=== PATIENT | male | born 1995 | race Caucasian/White ===

== ENCOUNTER 2017-06-19 02:01 | Emergency (ER) | payer OTHER ==
[~2017-06-19] VITALS: Ht 182.9 cm; Wt 100.0 kg
[2017-06-19 02:05] VITALS: TEMP 36.8; Ht 182.9 cm; Wt 100.0 kg
[2017-06-19 02:18] VITALS: O2SAT 100
[2017-06-19 02:58] LABS: CALCIUM 8.2 mg/dl (8.5-10.1); CREATININE 0.84 mg/dl (0.60-1.40); POTASSIUM 3.5 mmol/L (3.5-5.1)
--- NOTE | 2017-06-19 03:09 | EMERGENCY ROOM VISIT NOTE ---
History Report prepared by Annabelleibnancy: Brad Cooper Under the Supervision of: Dr. Rosangela Chan D.O. First contact with patient: 02:23 Chief Complaint: ALCOHOL OVERDOSE Stated Complaint: ALCOHOL Nursing Triage Summary: PT was out with friends, made it back to residence was found in basement in bathroom, vomiting. PT AAO X 4, vomited once upon arrival. History of Present Illness HPI is limited due to an altered mental state secondary to alcohol intoxication.The patient is a 22 year old male who presents to the Emergency Room via EMS with complaints of a recent alcohol overdose. Per patient's summary report, patient was found at his residence vomiting. EMS states that the patient tried to run from EMS and police. Source of History: patient History Limited By: AMS (Secondary to alcohol intoxication) Review of Systems ROS limited due to an altered mental state secondary to alcohol intoxication. Past Medical & Surgical Past medical & surgical history limited due to an altered mental state secondary to alcohol intoxication. Family History Family history limited due to an altered mental state secondary to alcohol intoxication. Social History Smoking Status: Never Smoker Occupation Status: [employer] student Social history limited due to an altered mental state secondary to alcohol intoxication. Physical Exam Vital Signs Date Time Temp Pulse Resp B/P (MAP) Pulse Ox O2 Delivery O2 Flow Rate FiO2 06/19/17 08:54 79 16 125/75 97 06/19/17 08:00 79 16 101/51 97 Room Air 06/19/17 06:14 88 06/19/17 06:00 89 18 124/64 98 Room Air 06/19/17 05:13 85 18 102/43 98 Room Air 06/19/17 04:00 74 16 92/50 98 06/19/17 03:00 77 16 109/53 99 Room Air 06/19/17 02:18 100 Room Air 06/19/17 02:12 100 06/19/17 02:05 36.8 84 18 100 Room Air Physical Exam General: Patient is unresponsive with vomit on his face and mouth. HEENT: Head - normocephalic and atraumatic Pupils are 2mm, equal, round, and nonreactive to light. Extraocular eye muscles are intact, and sclera are anicteric. Nose - moist nasal mucosa without discharge. Mouth - moist buccal mucosa. Oropharynx is nonerythematous and there is no tonsillar exudate or edema noted. Neck: Supple; no JVD, nuchal rigidity, cervical lymphadenopathy. Heart: Regular rate and rhythm. There is a normal S1 and S2 with no murmurs, clicks, or gallops appreciated. Lungs: Clear to auscultation bilaterally with no wheezes, rales, or rhonchi. Abdomen: Soft, completely nontender, nondistended, with good bowel sounds. There are no palpable pulsatile masses or hepatosplenomegaly. There is no guarding, rigidity, or rebound noted. Extremities: No evidence of cyanosis, clubbing, or edema. There are easily palpable peripheral pulses. Abrasion on right knuckles and right knee. Skin: warm and dry with good turgor and no rashes. Medical Decision & Procedures Laboratory Results 06/19/17 02:09 Test 06/19/17 02:09 Anion Gap 7.0 mmol/L (3-11) Est Creatinine Clear Calc Drug Dose 170.3 ml/min Estimated GFR () 145.1 Estimated GFR (Non- 125.2 BUN/Creatinine Ratio 16.0 (10-20) Calcium Level 8.2 mg/dl (8.5-10.1) Ethyl Alcohol mg/dL 276.0 mg/dl (0-3) Laboratory results per my review. ED Course 0254: Past medical records reviewed. The patient was evaluated in room B12. A complete history and physical exam was performed. Laboratory studies were drawn as above. The patient was placed in the prone position to avoid aspiration. He was observed on the security monitor and pulse oximeter. 0355: Patient is sleeping with stable vital signs. 0517: Patient is sleeping with stable vital signs. 0830: Upon reevaluation, the patient is resting comfortably. I discussed findings and results with him. He verbalized agreement of the treatment plan. He was discharged home. Medical Decision The patient is a 22 year old male who presents to the ED with a recent alcohol overdose. Differential diagnosis includes alcohol overdose, drug intoxication, hypoglycemia, and head injury. Lab results show alcohol = 276, glucose = 104, and normal renal function. This is a 22-year-old male patient who was brought to the emergency department after consuming too much alcohol. The patient was cooperative here in the emergency department. He did have some vomiting upon arrival. The patient remained hemodynamically stable throughout his stay. Once he was more sober, I discussed the situation with him and encouraged him to avoid such excessive alcohol use in the future Medication Reconcilliation Current Medication List: was personally reviewed by me Blood Pressure Screening Patient's blood pressure: Normal blood pressure Blood pressure disposition: Did not require urgent referral Impression Primary Impression: Alcohol overdose Scribe Attestation The scribe's documentation has been prepared under my direction and personally reviewed by me in its entirety. I confirm that the note above accurately reflects all work, treatment, procedures, and medical decision making performed by me. Departure Information Dispostion Home / Self-Care Forms HOME CARE DOCUMENTATION FORM, IMPORTANT VISIT INFORMATION Patient Instructions ED Overdose Alcohol, [facility]: [employer] Students and Alcohol Related Visits, [facility] Additional Instructions Rest. Take plenty of fluids today and a bland diet Avoid such excessive alcohol use in the future Take tylenol for headache Problem Qualifiers Primary Impression: Alcohol overdose Encounter type: initial encounter Injury intent: accidental or unintentional Qualified Codes: T51.91XA - Toxic effect of unspecified alcohol , accidental (unintentional), initial encounter
[2017-06-19 08:54] VITALS: BP 125/75; PULSE 79; O2SAT 97
== END 2017-06-19 08:55 | disposition home or self-care (01) ==
LOC: EDBD 02:01 → C.EDB 02:03
DX: F10.929 Alcohol use, unspecified with intoxication, unspecified (principal); Y90.8 Blood alcohol level of 240 mg/100 ml or more